=== PATIENT | female | born 1990 | race Caucasian/White ===

== ENCOUNTER 2017-02-28 22:40 | Emergency (ER) | payer OTHER ==
[~2017-02-28] VITALS: Ht 165.1 cm; Wt 70.3 kg
[~2017-02-28 22:40] MED LIST: BACTRIM DS TAB1 EACH PO; BENADRYL25 MG PO; DEPO-PROVER150 MG/ML IM
[2017-02-28] MEDS ORDERED: CEPHALEXIN500 MG PO (23:19)
[2017-02-28] MEDS ORDERED: NORCO 5-325 TA1 EACH PO (23:19)
== END 2017-02-28 23:22 | disposition home or self-care (01) ==
LOC: ED 22:40
DX: H66.92 Otitis media, unspecified, left ear (principal)
CPT/HCPCS: 99283

== ENCOUNTER 2017-09-13 05:24 | Emergency (ER) | payer OTHER ==
[~2017-09-13] VITALS: Ht 165.1 cm; Wt 68.0 kg
--- OUTSIDE RECORDS SUMMARY | ~2017-09-13 | XMS | Clinical Summary ---
Demographics + + + | Address | [address] | | | [place] [address] | + + + | Home Phone | | + + + | Preferred Language | Unknown | + + + | Marital Status | Single | + + + | Yazidism Affiliation | Unknown | + + + | Race | White | + + + | Ethnic Group | Not or | + + + Author + + + | Author | [facility] | + + + | Organization | [facility] | + + + | Address | Unknown | + + + | Phone | Unavailable | + + + Support + + + + + | Name | Relationship | Address | Phone | + + + + + | ANJELICA ROBERTSON | ECON | [place] | | + + + + + | Kelly Buck | ECON | Unknown | Unavailable | + + + + + Care Team Providers + +------+ + | Care Manager Store Name | Role | Phone | + +------+ + | Dez Amaro MD | PP | | + +------+ + Source Comments NATHANAEL is fully live on both [facility] Ambulatory and [facility] InPatient.[facility] Allergies No Known Allergies Current Medications No known medications Active Problems + + + | Problem | Noted Date | + + + | 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 | | + + + Social History + +-------+ +--------+------+ | Tobacco Use | Types | Packs/Day | Years | Date | | | | | Used | | + +-------+ +--------+------+ | Never Assessed | | | | | + +-------+ +--------+------+ + + + | Sex Assigned at | Date Recorded | | | | + + + | Not on file | | + + + Last Filed Vital Signs + + + + | Vital Sign | Reading | Time Taken | + + + + | Blood Pressure | 124/75 | 11/22/2009 10:52 AM PDT | + + + + | Pulse | 86 | 11/22/2009 10:52 AM PDT | + + + + | Temperature | - | - | + + + + | Respiratory Rate | - | - | + + + + | Oxygen Saturation | - | - | + + + + | Inhaled Oxygen | - | - | | Concentration | | | + + + + | Weight | 58.1 kg (128 lb 1.4 | 11/22/2009 10:52 AM PDT | | | oz) | | + + + + | Height | 165.5 cm (5' 5.16") | 11/22/2009 10:52 AM PDT | + + + + | Body Mass Index | 21.21 | 11/22/2009 10:52 AM PDT | + + + + Plan of Treatment + + + + + | Health Maintenance | Due Date | Last Done | Comments | + + + + + | INFLUENZA VACCINE | | | | | (FLU SHOT) | 8 | | | + + + + + Results Not on filefrom Last 3 Months
--- OUTSIDE RECORDS SUMMARY | ~2017-09-13 | XMS | Clinical Summary ---
Demographics + + + | Address | [address] | | | [place] [address] | + + + | Home Phone | | + + + | Preferred Language | Unknown | + + + | Marital Status | Single | + + + | Gnosticism Affiliation | Unknown | + + + [...] Team Providers + +------+ + | Care Maintenance Plumber Name | Role | Phone | + +------+ + | Dez Amaro MD | PP | | + +------+ + Source Comments NATHANAEL is fully live on both [facility] Ambulatory and [facility] InPatient.[facility] Allergies No Known Allergies Current Medications No [...]
[~2017-09-13 05:24] MED LIST changes: +CEPHALEXIN500 MG PO; +NORCO 5-325 TA1 EACH PO
[2017-09-13] MEDS ORDERED: ZOFRAN ODT4 MG SL (05:46)
[2017-09-18] MEDS ORDERED: NORTREL 1-35 21 EACH PO (08:54)
== END 2017-09-13 08:27 | disposition home or self-care (01) ==
LOC: ED 05:24
DX: R10.13 Epigastric pain (principal)
CPT/HCPCS: 74177; 80053; 81001; 83690; 84703; 85025; 96374; 96375; 99284; J0780; J1170; J2405; J2550; J7030; Q9967

== ENCOUNTER 2020-10-21 06:24 | Emergency (ER) | payer BC, SELFPAY ==
[~2020-10-21] VITALS: Ht 165.1 cm; Wt 73.5 kg
[~2020-10-21 06:24] MED LIST changes: +NORTREL 1-35 21 EACH PO; +ZOFRAN ODT4 MG SL
--- OUTSIDE RECORDS SUMMARY | 2020-10-21 06:26 | XMS ---
PreManage Notification: NIKHIL LEE Security Hydrotechnical Specialist Events No recent Security Events currently on file CRITERIA MET - KARLO CARE PROVIDERS CHARLENE BOONE [facility] Current PHONE: [phone] CESAR DOBSON [facility] Current PHONE: [phone] Yaneli has no Care Guidelines for this patient. Bianca VISIT COUNT (12 MO.) Brooke Cisneros TOTAL 1 NOTE: Visits indicate total known visits. ED/UCC VISIT TRACKING (12 MO.) 10/21/2020 06:24 LEXIE Odell [place] TYPE: Emergency COMPLAINT: - HEAD PAIN AND NAUSEA INPATIENT VISIT TRACKING (12 MO.) No inpatient visits to display in this time frame [email or web address]
[2020-10-21] MEDS ORDERED: OMEPRAZOLE40 MG PO (07:14)
[2020-10-21] MEDS ORDERED: ALPRAZOLAM0.5 MG PO (07:14)
== END 2020-10-21 08:53 | disposition home or self-care (01) ==
LOC: ED 06:24
DX: B34.9 Viral infection, unspecified (principal); Z20.822 Contact with and (suspected) exposure to COVID-19
CPT/HCPCS: 81001; 84703; 99283; A9270; C9803; U0003

== ENCOUNTER 2022-01-01 15:52 | Observation (INO) | payer OTHER ==
[~2022-01-01] VITALS: Ht 167.6 cm; Wt 74.8 kg
[~2022-01-01 15:52] MED LIST changes: +ALPRAZOLAM0.5 MG PO; +OMEPRAZOLE40 MG PO
--- NOTE | 2022-01-02 07:34 | PR ---
[facility] [address] [facility] [place], [place] [address] Signed AP Progress Notes Datetime Report Generated by DANNI: 01/02/2022 07:34 Chief Complaint: Nausea improved Pain improved Some sleep last night PHYSICAL EXAM: [id number] General: Normal HEENT: Not Done Neurologic: Not Done Thyroid: Not Done Cardiovascular: Normal Respiratory: Not Done Breast: Not Done Back: Not Done Abdomen: Abnormal Genitourinary Exam: Not Done Extremities: Normal Physical Exam Comments: Abdomen with mild tenderness at the epigastrium and RUQ Uterus soft, nontender WBC 7.2, H/H 10.1/30.2, plat 186k Na 140, K 3.2, Cl 106, CO2 25, glu 71 BUN/CR 6/0.6 AST 41 (prev 68) ALT 74 (prev 112) Amylase 106 (prev 385) Lipase 306 (prev 2601) Impression: 31 yo now at 30.3 wks with acute cholecystitis/pancreatitis who is much improved this am with less pain and improved labs. I suspect her diet will be able to be advanced if Dr. Salazar concurs and possibly discharged later today Hypokalemia minimally improved Plan: K+ rider Nutrition consult VITAL SIGNS: [id number] EXAM: [id number] MEMBRANES: [id number] FETUS A: [id number] FETUS B: [id number] PROGRESS NOTES: [id number] *Electronically Signed* 01/02/22 0734 ADELA THOMAS MD PATIENT NAME: NIKHIL LEE PROGRESS NOTE DATE OF : 90 PHYSICIAN: ADELA THOMAS MD RPT #: [id number] REPORT IS CONFIDENTIAL AND NOT TO BE RELEASED WITHOUT AUTHORIZATION [facility] [address] [place], [place] [address] Signed Signing Physician: Adela Thomas MD Copies: ~ *Electronically Signed* 01/02/22 0734 ADELA THOMAS MD PATIENT NAME: NIKHIL LEE PROGRESS NOTE DATE OF : 90 PHYSICIAN: ADELA THOMAS MD RPT #: [id number] REPORT IS CONFIDENTIAL AND NOT TO BE RELEASED WITHOUT AUTHORIZATION
--- NOTE | 2022-01-02 09:39 | CONS ---
[facility] [address] [place], [place] [address] Signed DATE OF CONSULTATION: 01/01/2022 TIME: 7:15 p.m. REQUESTING PHYSICIAN: Adela Thomas MD. PROBLEM: Gallstone pancreatitis. HISTORY OF PRESENT ILLNESS: This 31-year-old white woman is 30 weeks gestation with an EDC of March 10, 2022 with her first child. She is from [place], [place]. She is accompanied by her . She is a member of the [employer]. She was admitted by Dr. Thomas at approximately 5:45 p.m. with complaints of epigastric and right subcostal and right subscapular pain . The patient noted similar symptoms in her first few weeks of , evaluated in the hospital in [facility]. Her pain was attributed to "kidney stones." specifically remembers that urinalysis was normal, however. An additional episode and perhaps even more episodes were noted along the course of her . Her episode last night was severe and disabling and on that basis, she presented to Dr. Thomas who recognized her to have significant peritoneal inflammation.She was admitted directly to the hospital for further evaluation and care. During the course of her admission on this occasion, she underwent ultrasound of gallbladder, which confirms multiple gallstones. Lab studies were obtained which show hypokalemia (3.0 potassium) and liver enzymes, which showed normal bilirubin of 0.7, and AST of 68, an ALT elevated at 112, and alkaline phosphatase normal at 97. An amylase of 385 and lipase of 2601. I was called by Dr. Thomas and recommended initiation of antibiotic Ancef at this time, IV fluids and maintenance of n.p.o. status for the time being. The patient has had no associated nausea or vomiting, but does have significant pain. Most of her pregnacy has been uneventful, except for these episodes of uppper abdominal pain. She has had a lot of reflux symptoms as well, for which she has taken " antacids". PAST MEDICAL HISTORY: Notable for porphyria cutanea tarda as well as migraine history, anxiety issues and COVID disease in December. Electronically Signed By: DELVIS IRAHETA MD 01/02/22 0939 PATIENT NAME: NIKHIL LEE CONSULTATION DATE OF : 90 REPORT #: [id number] PHYSICIAN: DELVIS IRAHETA MD PCP: OTHER PCP REPORT IS CONFIDENTIAL AND NOT TO BE RELEASED WITHOUT AUTHORIZATION [facility] [address] [place], [place] [address] Signed MEDICATIONS: At admission include 81 mg aspirin, Zoloft, buspirone 7.5 mg as needed. REVIEW OF SYSTEMS: She denies any shortness of breath or chest pain. She has had no hematemesis or blood per rectum. SOCIAL HISTORY: She is . Her accompanies her. She is from [facility]. PHYSICAL EXAMINATION: GENERAL: Pleasant white woman who does not look systemically toxic at this time. Presenting vital signs show a temperature 97.2, pulse is 86, blood pressure 120/70. HEENT: Mucous membranes were rather dry. Trachea is midline. She has no hoarseness. CHEST: Shows normal respiratory excursion without tachypnea. HEART: Regular. She has very enlarged breasts. ABDOMINAL: Examination shows a fundic height somewhat below the xiphoid and well above the umbilicus consistent with 30 weeks gestation. She has significant tenderness in the epigastric and right subcostal area. She has no discernible ascites. EXTREMITIES: Show no clubbing, cyanosis, or edema. There are no petechiae. Urinalysis is reported as normal. I will review the ultrasound myself and on a different computer, but the report described multiple small gallstones and gallbladder wall edema. ASSESSMENT: Dominantly, the patient has gallstone pancreatitis. The possibility of concurent acute calculous cholecystitis is also possible. Some thickening of the gallbladder is noted. I discussed the pathophysiology of this problem with the patient and her with use of illustrations and so on. Whether or not she has associated cholecystitis is uncertain. Standard treatment for gallstone pancreatitis is a bowel rest, IV fluids, variably administration of antibiotics and allowance for resolution of clinical symptoms and signs of pancreatitis followed by cholecystectomy preferably during the same hospital stay so as to minimize chances of recurrent pancreatitis. Given her relatively advanced gestational age of 30 weeks, these issues become more problematic. Cholecystectomy--even by laparoscopic approach-- can be performed at any time during the course of if indicated. Precipitation of unintended premature labor is a hazard of operation. Untreated ongoing inflammatory processes including cholecystitis or pancreatitis can also precipitate unintended labor as well however. Electronically Signed By: DELVIS IRAHETA MD 01/02/22 0939 PATIENT NAME: NIKHIL LEE CONSULTATION DATE OF : 90 REPORT #: [id number] PHYSICIAN: DELVIS IRAHETA MD PCP: OTHER PCP REPORT IS CONFIDENTIAL AND NOT TO BE RELEASED WITHOUT AUTHORIZATION [address] [address] Signed It is reasonable to observe at this time and allow for resolution of the pancreatitis clinically and (possibly) associated cholecystitis with bowel rest, IV antibiotics, and intravenous fluids. Open cholecystectomy in this situation may be a more appropriate approach if one could not delay cholecystectomy until after delivery of the child. She would be considered at minimum to have six weeks of continued gestation before entertaining cholecystectomy and more preferably only after delivery of the child. Dr. Thomas's inclination is obviously to wait until delivery if at all possible-- as is mine. At this point, appropriate fluid resuscitation has been initiated as well as antibiotics. She does have underlyling significant gastroesophageal reflux for which a PPI or H2 yumiko medication would be appropriate. Re-evaluation of lab tests and, more importantly, clinical examination tomorrow would be planned to assess the direction in which things are going. All of this was discussed with the patient and her . They clearly understand and agree with this approach at this time. MD MANN Henry/STEPHANYL /[id number] cc: Adela Thomas MD Copies: ADELA THOMAS MD ~ Electronically Signed By: DELVIS IRAHETA MD 01/02/22 0939 PATIENT NAME: NIKHIL LEE CONSULTATION DATE OF : 90 REPORT #: [id number] PHYSICIAN: DELVIS IRAHETA MD PCP: OTHER PCP REPORT IS CONFIDENTIAL AND NOT TO BE RELEASED WITHOUT AUTHORIZATION
--- NOTE | 2022-01-02 12:39 | NUR ---
NUTRITION CONSULT RECEIVED FOR DIET EDUCATION ON A LOW-FAT DIET. PROVIDED PATIENT A HANDOUT ON A FAT-RESTRICTED DIET FROM THE NCM BUT I SUGGESTED SHE AIM FOR 15 TO 20% OF HER CALORIES TO COME FROM FAT INSTEAD OF 25 TO 35% OF CALORIES. I WALKED HER THROUGH THE FOODS RECOMMENDED LIST. I SUGGESTED SHE SWITCH FROM 2% TO FAT FREE OR 1% MILK AND THAT SHE EAT THE LIGHT STRING CHEESE AND FAT FREE OR LOW-FAT CHEESE. SHE AND HER DO EAT MEAT SO I REMINDED HER TO GRILL, BAKE, BROIL, OR ROAST THE MEAT AND TO AVOID FRIED FOODS OF ANY KIND. LOW-FAT OR FAT-FREE SNACK IDEAS PROVIDED. HER QUESTIONS WERE ANSWERED. MY NAME AND OFFICE # PROVIDED IN CASE FURTHER QUESTIONS ARISE.
--- NOTE | 2022-01-02 12:53 | PR ---
[facility] [address] [facility] [place] [address] Signed AP Progress Notes Datetime Report Generated by CPN: 01/02/2022 12:53 Chief Complaint: Feeling better Very hungry PHYSICAL EXAM: [id number] General: Normal HEENT: Not Done Neurologic: Not Done Thyroid: Not Done Cardiovascular: Not Done Respiratory: Not Done Breast: Not Done Back: Not Done Abdomen: Abnormal Genitourinary Exam: Not Done Extremities: Normal Physical Exam Comments: Abdomen is soft, gravid sl tender in epigastrium and RUQ Impression: Feeling better Hypokalemia Plan: Will try low fat lunch Check K+ level VITAL SIGNS: [id number] EXAM: [id number] MEMBRANES: [id number] FETUS A: [id number] FETUS B: [id number] PROGRESS NOTES: [id number] Signing Physician: Adela Thomas MD Copies: ~ *Electronically Signed* 01/02/22 1253 ADELA THOMAS MD PATIENT NAME: NIKHIL LEE PROGRESS NOTE DATE OF : 90 PHYSICIAN: ADELA THOMAS MD RPT #: [id number] REPORT IS CONFIDENTIAL AND NOT TO BE RELEASED WITHOUT AUTHORIZATION
--- NOTE | 2022-01-03 08:38 | PR ---
[facility] [address] [facility] [place], [place] [address] Signed AP Progress Notes Datetime Report Generated by DANNI: 01/03/2022 08:38 Chief Complaint: Had some nausea this am but relates it to her migraine. Abdominal pain has resolved. PHYSICAL EXAM: [id number] General: Normal HEENT: Not Done Neurologic: Not Done Thyroid: Not Done Cardiovascular: Not Done Respiratory: Not Done Breast: Not Done Back: Not Done Abdomen: Abnormal Genitourinary Exam: Not Done Extremities: Normal DTRs: Not Done Physical Exam Comments: Abdomen is gravid, soft, minimal tenderness in epigastrium and RUQ Na 141, K 3.3, Cl 107, CO2 24, BUN/Cr 4/0.61, Glu 78 ALT 47 AST 23 Amylase 60 Lipase 154 Impression: IUP at 30.4 wks Cholecystitis/pancreatitis resolved at this time Hypokalemia Plan: Low fat diet this am K+ supplementation Probable D/C if tolerates her breakfast and K rider complete VITAL SIGNS: [id number] EXAM: [id number] MEMBRANES: [id number] FETUS A: [id number] FETUS B: [id number] PROGRESS NOTES: [id number] Signing Physician: Adela Thomas MD *Electronically Signed* 01/03/22837 ADELA THOMAS MD PATIENT NAME: NIKHIL LEE PROGRESS NOTE DATE OF : 90 PHYSICIAN: ADELA THOMAS MD RPT #: [id number] REPORT IS CONFIDENTIAL AND NOT TO BE RELEASED WITHOUT AUTHORIZATION [facility] [address] [place], [place] [address] Signed Copies: ~ *Electronically Signed* 01/03/22 0838 ADELA THOMAS MD PATIENT NAME: NIKHIL LEE PROGRESS NOTE DATE OF : 90 PHYSICIAN: ADELA THOMAS MD RPT #: [id number] REPORT IS CONFIDENTIAL AND NOT TO BE RELEASED WITHOUT AUTHORIZATION
== END 2022-01-03 11:32 | disposition home or self-care (01) ==
LOC: FBCO → FBC 15:52 → FBCO 15:52 → FBC 16:20 → FBCO 17:25 → FBC 17:25 → FBCO 03-10 08:33
PROVIDERS: ADMIT Obstetrics & Gynecology; ATTEND Obstetrics & Gynecology
DX: O99.613 Diseases of the digestive system complicating pregnancy, third trimester (principal); K92.89 Other specified diseases of the digestive system; K85.10 Biliary acute pancreatitis without necrosis or infection; K21.9 Gastro-esophageal reflux disease without esophagitis; Z3A.30 30 weeks gestation of pregnancy
CPT/HCPCS: 36415; 76705; 80048; 80053; 81001; 82150; 83690; 84132; 84478; 85025; A9270; J0690; J1170; J2405; J2550; J3480; J7040; J7060; J7121

== ENCOUNTER 2022-01-17 16:13 | Observation (INO) | payer OTHER ==
[~2022-01-17] VITALS: Ht 167.6 cm; Wt 71.7 kg
--- NOTE | 2022-01-18 09:05 | PR ---
[facility] [address] [facility] [place], [place] [address] Signed AP Progress Notes Datetime Report Generated by DANNI: 01/18/2022 09:05 Chief Complaint: Nausea, right flank/abdominal pain, low back pain which are all improved this am. PHYSICAL EXAM: [id number] General: Normal HEENT: Not Done Neurologic: Not Done Thyroid: Not Done Cardiovascular: Normal Respiratory: Not Done Breast: Not Done Back: Not Done Abdomen: Abnormal Genitourinary Exam: Not Done Extremities: Normal DTRs: Not Done Physical Exam Comments: Abdomen is gravid. Tender in the RUQ. K+= 3.2 Impression: 31 yo female who may have had a GI bug with her vomiting and diarrhea yesterday but also has a hx of gallstone pancreatitis requiring admission 2 wks ago. There is no evidence of pancreatitis at this time but her symptoms may be related to her gallbladder also. Dehydration is improving Hypokalemia improving but still too low Plan: Continue hydration Repeat K rider VITAL SIGNS: [id number] EXAM: [id number] MEMBRANES: [id number] Membranes: Intact FETUS A: [id number] FETUS B: [id number] PROGRESS NOTES: [id number] Signing Physician: Adela Thomas MD *Electronically Signed* 01/18/22904 ADELA THOMAS MD PATIENT NAME: NIKHIL LEE PROGRESS NOTE DATE OF : 90 PHYSICIAN: ADELA THOMAS MD RPT #: [id number] REPORT IS CONFIDENTIAL AND NOT TO BE RELEASED WITHOUT AUTHORIZATION
--- NOTE | 2022-01-18 12:56 | PR ---
[facility] [address] [place], [place] [address] Signed AP Progress Notes Datetime Report Generated by CPN: 01/18/2022 12:56 Chief Complaint: Nausea resolved. Some discomfort over back--lower and upper and some sciatica. She has not been drinking her clear liquids and has no explanation for not drinking. PHYSICAL EXAM: [id number] General: Normal HEENT: Not Done Neurologic: Not Done Thyroid: Not Done Cardiovascular: Normal Respiratory: Not Done Breast: Not Done Back: Not Done Abdomen: Abnormal Genitourinary Exam: Not Done Extremities: Normal DTRs: Not Done Physical Exam Comments: K+= 3.5 Impression: Overall improved with resolution of nausea and pain better. She is not drinking, however, and this is problematic. Plan: Start low fat diet Push po fluids Possible D/C later today VITAL SIGNS: [id number] EXAM: [id number] MEMBRANES: [id number] Membranes: Intact FETUS A: [id number] FETUS B: G8662546 PROGRESS NOTES: [id number] Signing Physician: Adela Thomas MD Copies: ~ *Electronically Signed* 01/18/22 7766 ADELA THOMAS MD PATIENT NAME: NIKHIL LEE PROGRESS NOTE DATE OF : 90 PHYSICIAN: ADELA THOMAS MD RPT #: [id number] REPORT IS CONFIDENTIAL AND NOT TO BE RELEASED WITHOUT AUTHORIZATION
--- NOTE | 2022-01-18 17:05 | PR ---
[facility] [address] [place] [place], [place] [address] Signed AP Progress Notes Datetime Report Generated by CPN: 01/18/2022 17:05 Chief Complaint: Tolerated a low fat lunch w/o nausea. Not great with fluid intake, however. PHYSICAL EXAM: [id number] General: Normal HEENT: Not Done Neurologic: Not Done Thyroid: Not Done Cardiovascular: Normal Respiratory: Not Done Breast: Not Done Back: Not Done Abdomen: Abnormal Genitourinary Exam: Not Done Extremities: Normal DTRs: Not Done Physical Exam Comments: Abdomen is gravid. Tender in RUQ. Impression: N/V resolved Hypokalemia resolved Hx gallstone pancreatitis and suspect gallbladder disease contributed to her pain and her nausea Plan: D/C home Push fluids Continue low fat diet F/U next wk as scheduled VITAL SIGNS: [id number] EXAM: [id number] MEMBRANES: [id number] Membranes: Intact FETUS A: [id number] FETUS B: H8709508 PROGRESS NOTES: [id number] Signing Physician: Adela Thomas MD *Electronically Signed* 01/18/22 1705 ADELA THOMAS MD PATIENT NAME: NIKHIL LEE PROGRESS NOTE DATE OF : 90 PHYSICIAN: ADELA THOMAS MD RPT #: [id number] REPORT IS CONFIDENTIAL AND NOT TO BE RELEASED WITHOUT AUTHORIZATION
== END 2022-01-18 17:00 | disposition home or self-care (01) ==
LOC: FBCO 16:13 → FBC 16:14
PROVIDERS: ADMIT General Practice; ATTEND General Practice
DX: O99.891 Other specified diseases and conditions complicating pregnancy (principal); R11.2 Nausea with vomiting, unspecified; M54.50 Low back pain, unspecified; O99.283 Endocrine, nutritional and metabolic diseases complicating pregnancy, third trimester; E87.6 Hypokalemia; E86.0 Dehydration; Z3A.32 32 weeks gestation of pregnancy
CPT/HCPCS: 36415; 59025; 80053; 81001; 82150; 83690; 84132; 96365; 96366; 96375; 96376; A9270; G0378; J2405; J2550; J3480; J7060; J7121

== ENCOUNTER 2022-02-13 13:34 | Inpatient (IN) | payer OTHER ==
[~2022-02-13] VITALS: Ht 167.6 cm; Wt 71.2 kg
--- NOTE | 2022-02-20 08:27 | PR ---
[facility] [address] [facility] [place] [address] Signed Progress Notes IP Datetime Report Generated by DANNI: 02/20/2022 08:26 PROGRESS NOTES: [id number] Impression: Reassuring Heart Rate Procedures: Sterile Vag Exam Plan: Continue Present Management VITAL SIGNS: [id number] Vital Signs: Reviewed; Within Normal Limits EXAM: [id number] Dilatation: 1.0 Effacement: 0 Station: -2 Contractions: q 1 to 2 min MEMBRANES: [id number] Membranes Status: Intact Comments: status much improved but another variable after up to the bathroom. I would like continuous monitoring given her intermittent variables. Will recheck in approx 2 hrs and attempt AROM at that time. FETUS A: [id number] FHR Baseline: 140 Variability: Moderate 6-25bpm Accelerations: None Decelerations: Late; Variable FHR Category: Category II Presentation: Vertex FETUS B: [id number] Signing Physician: Adela Thomas MD Copies: ~ *Electronically Signed* 02/20/22825 ADELA THOMAS MD PATIENT NAME: NIKHIL LEE PROGRESS NOTE DATE OF : 90 PHYSICIAN: ADELA THOMAS MD RPT #: [id number] REPORT IS CONFIDENTIAL AND NOT TO BE RELEASED WITHOUT AUTHORIZATION
--- NOTE | 2022-02-20 11:52 | PR ---
[facility] [address] [facility] [place], [place] [address] Signed Progress Notes IP Datetime Report Generated by DANNI: 02/20/2022 11:52 PROGRESS NOTES: [id number] Impression: Reassuring Heart Rate Procedures: Artificial ROM; Sterile Vag Exam Plan: Continue Present Management VITAL SIGNS: [id number] Vital Signs: Reviewed; Within Normal Limits EXAM: [id number] Dilatation: 1.0 Effacement: 25 Station: -3 Contractions: q 1 to 2 min MEMBRANES: [id number] Membranes Status: Intact Comments: Overall reassuring strip with variability and accels. Will continue close observation. Hopefully, AROM will allow progress in her labor. FETUS A: [id number] FHR Baseline: 140 Variability: Moderate 6-25bpm Accelerations: None Decelerations: Late; Variable FHR Category: Category II Presentation: Vertex FETUS B: [id number] Signing Physician: Adela Thomas MD Copies: ~ *Electronically Signed* 02/20/22 1152 ADELA THOMAS MD PATIENT NAME: NIKHIL LEE PROGRESS NOTE DATE OF : 90 PHYSICIAN: ADELA THOMAS MD RPT #: [id number] REPORT IS CONFIDENTIAL AND NOT TO BE RELEASED WITHOUT AUTHORIZATION
--- NOTE | 2022-02-20 13:23 | PR ---
[facility] [address] [facility] [place], [place] [address] Signed Progress Notes IP Datetime Report Generated by CPN: 02/20/2022 13:23 PROGRESS NOTES: [id number] Impression: Reassuring Heart Rate Procedures: Sterile Vag Exam Plan: Continue Present Management VITAL SIGNS: [id number] Vital Signs: Reviewed; Within Normal Limits EXAM: [id number] Dilatation: 1.0 Effacement: 50 Station: -3 Contractions: q 1 to 2 min MEMBRANES: [id number] Membranes Status: Intact Comments: Improvement in FHTs with changes in position but will continue to require very close observation as baby has decels with ambulation/sitting on the birthing ball. It is not clear if she will be successful with vaginal delivery at this time. Will continue close observation with position changes as needed. FETUS A: [id number] FHR Baseline: 140 Variability: Moderate 6-25bpm Accelerations: None Decelerations: Late; Variable FHR Category: Category II Presentation: Vertex FETUS B: [id number] Signing Physician: Adela Thomas MD Copies: ~ *Electronically Signed* 02/20/22 1323 ADELA THOMAS MD PATIENT NAME: NIKHIL LEE PROGRESS NOTE DATE OF : 90 PHYSICIAN: ADELA THOMAS MD RPT #: [id number] REPORT IS CONFIDENTIAL AND NOT TO BE RELEASED WITHOUT AUTHORIZATION
--- NOTE | 2022-02-20 16:54 | PR ---
[facility] [address] [place], [place] [address] Signed Progress Notes IP Datetime Report Generated by DANNI: 02/20/2022 16:54 PROGRESS NOTES: [id number] Impression: Non-reassuring Heart Rate Procedures: Intrauterine Pressure Catheter; Scalp Electrode; Sterile Vag Exam Other Procedures: subq terb Plan: Continue Present Management Informed Consent Obtain: Section Delivery; Risks, Benefits and Alternatives Discussed VITAL SIGNS: [id number] Vital Signs: Reviewed; Within Normal Limits EXAM: [id number] Dilatation: 3.0 Effacement: 85 Station: -2 Contractions: q 1 to 2 min MEMBRANES: [id number] Membranes Status: Intact Comments: Some progress but still very early in her labor but status worrisome with recurring decels as well as prolonged decels earlier. Will try subQ terb now to see if this will help with the decels as position changes not helpful. If there is no improvement, C/S will be necessary to avoid compromise. FETUS A: [id number] FHR Baseline: 140 Variability: Moderate 6-25bpm Accelerations: None Decelerations: Late; Variable FHR Category: Category II Presentation: Vertex FETUS B: [id number] Signing Physician: Adela Thomas MD Copies: ~ *Electronically Signed* 02/20/22 7772 ADELA THOMAS MD PATIENT NAME: NIKHIL LEE PROGRESS NOTE DATE OF : 90 PHYSICIAN: ADELA THOMAS MD RPT #: [id number] REPORT IS CONFIDENTIAL AND NOT TO BE RELEASED WITHOUT AUTHORIZATION
--- NOTE | 2022-02-20 17:13 | PR ---
[facility] [address] [place], [place] [address] Signed Progress Notes IP Datetime Report Generated by DANNI: 02/20/2022 17:12 PROGRESS NOTES: [id number] Impression: Reassuring Heart Rate Procedures: Intrauterine Pressure Catheter; Scalp Electrode; Sterile Vag Exam Other Procedures: subq terb Plan: Continue Present Management Informed Consent Obtain: Section Delivery; Risks, Benefits and Alternatives Discussed VITAL SIGNS: [id number] Vital Signs: Reviewed; Within Normal Limits EXAM: [id number] Dilatation: 3.0 Effacement: 85 Station: -2 Contractions: q 1 to 2 min MEMBRANES: [id number] Membranes Status: Intact Comments: status much improved after subQ terb and eliminating most of the contractions. Will allow terb to wear off and see how fetus tolerates the labor. If recurrent decels, suspect we will need to proceed with section. Discussed with patient. FETUS A: [id number] FHR Baseline: 140 Variability: Moderate 6-25bpm Accelerations: None Decelerations: Late; Variable FHR Category: Category II Presentation: Vertex FETUS B: [id number] Signing Physician: Adela Thomas MD Copies: ~ *Electronically Signed* 02/20/22 1712 ADELA THOMAS MD PATIENT NAME: NIKHIL LEE PROGRESS NOTE DATE OF : 90 PHYSICIAN: ADELA THOMAS MD RPT #: [id number] REPORT IS CONFIDENTIAL AND NOT TO BE RELEASED WITHOUT AUTHORIZATION
--- NOTE | 2022-02-20 21:15 | PR ---
[facility] [address] [place], [place] [address] Signed Progress Notes IP Datetime Report Generated by DANNI: 02/20/2022 21:15 PROGRESS NOTES: [id number] Impression: Arrest of Dilatation/Descent; Reassuring Heart Rate Procedures: Intrauterine Pressure Catheter; Scalp Electrode; Sterile Vag Exam Other Procedures: subq terb Plan: Augmentation Informed Consent Obtain: Section Delivery; Risks, Benefits and Alternatives Discussed VITAL SIGNS: [id number] Vital Signs: Reviewed; Within Normal Limits EXAM: [id number] Dilatation: 3.0 Effacement: 85 Station: -2 Contractions: q 1 to 2 min MEMBRANES: [id number] Membranes Status: Intact Comments: No progress for over 4 hrs though not ideal labor pattern. FHTs overall reassuring but still with frequent variables/lates. Feel augmentation is needed to determine if progress can be made with adequate contractions. It is unclear whether or not baby will tolerate an adequate labor pattern, however. Discussed with patient and will proceed with low dose pitocin augmentation. FETUS A: [id number] FHR Baseline: 140 Variability: Moderate 6-25bpm Accelerations: None Decelerations: Late; Variable FHR Category: Category II Presentation: Vertex FETUS B: [id number] Signing Physician: Adela Thomas MD Copies: ~ *Electronically Signed* 02/20/22 1245 ADELA THOMAS MD PATIENT NAME: NIKHIL LEE PROGRESS NOTE DATE OF : 90 PHYSICIAN: ADELA THOMAS MD RPT #: [id number] REPORT IS CONFIDENTIAL AND NOT TO BE RELEASED WITHOUT AUTHORIZATION
--- NOTE | 2022-02-20 22:18 | PR ---
[facility] [address] [place], [place] [address] Signed Progress Notes IP Datetime Report Generated by DANNI: 02/20/2022 22:18 PROGRESS NOTES: [id number] Impression: Arrest of Dilatation/Descent; Non-reassuring Heart Rate Procedures: Intrauterine Pressure Catheter; Scalp Electrode; Sterile Vag Exam Other Procedures: subq terb Plan: Deliver- Section Informed Consent Obtain: Section Delivery; Risks, Benefits and Alternatives Discussed VITAL SIGNS: [id number] Vital Signs: Reviewed; Within Normal Limits EXAM: [id number] Dilatation: 3.0 Effacement: 85 Station: -2 Contractions: q 1 to 2 min MEMBRANES: [id number] Membranes Status: Intact Comments: status no longer reassuring and as no progress feel section is needed. Pitocin is off and she is now getting dose #3 of subq terb to help with intrauterine resuscitation. PARQ done for C/S. FETUS A: [id number] FHR Baseline: 140 Variability: Moderate 6-25bpm Accelerations: None Decelerations: Late; Variable FHR Category: Category II Presentation: Vertex FETUS B: [id number] Signing Physician: Adela Thomas MD Copies: ~ *Electronically Signed* 02/20/22 2740 ADELA THOMAS MD PATIENT NAME: NIKHIL LEE PROGRESS NOTE DATE OF : 90 PHYSICIAN: ADELA THOMAS MD RPT #: [id number] REPORT IS CONFIDENTIAL AND NOT TO BE RELEASED WITHOUT AUTHORIZATION
--- NOTE | 2022-02-21 11:27 | PR ---
[facility] [address] [facility] [place], [place] [address] Signed PP Progress Notes Datetime Report Generated by CPN: 02/21/2022 11:26 SUBJECTIVE: [id number] Pain: Within Normal Limits Nausea/Vomiting: Denies Vital Signs: [id number] Vital Signs: Reviewed; Within Normal Limits Cardiovascular: Normal Respiratory: Normal Abdomen/Uterus: Abnormal Lochia: Normal Vulva/Perineum: Not Done Breasts: Not Done CVA Tenderness: Not Done Extremities: Normal Incision: Normal Progress: Normal Exam Comments: Abdomen with active BS. Fundus firm, sl tender @ U-2. H/H 9.5/29.2, WBC 13.1, plat 148k IMPRESSION/PLAN/PROCEDURES: [id number] Impression: Normal Progression Other Plans: ambulate Procedures: Rhogam Progress Notes: Doing well. Will begin ambulating and D/C arora this pm. Signing Physician: Adela Thomas MD Copies: ~ *Electronically Signed* 02/21/22 1126 ADELA THOMAS MD PATIENT NAME: NIKHIL LEE PROGRESS NOTE DATE OF : 90 PHYSICIAN: ADELA THOMAS MD RPT #: [id number] REPORT IS CONFIDENTIAL AND NOT TO BE RELEASED WITHOUT AUTHORIZATION
--- NOTE | 2022-02-22 08:21 | PR ---
[facility] [address] [facility] [place], [place] [address] Signed PP Progress Notes Datetime Report Generated by CPJovani: 02/22/2022 08:21 SUBJECTIVE: [id number] Pain: Within Normal Limits Nausea/Vomiting: Denies Flatus: Yes Vital Signs: [id number] Vital Signs: Reviewed; Within Normal Limits Cardiovascular: Normal Respiratory: Abnormal Abdomen/Uterus: Abnormal Lochia: Normal Vulva/Perineum: Not Done Breasts: Not Done CVA Tenderness: Not Done Extremities: Normal Incision: Normal Progress: Abnormal Exam Comments: Abdomen with active BS. Fundus firm, NT @ U-2. IMPRESSION/PLAN/PROCEDURES: [id number] Impression: Normal Progression; Difficulties Plan: Consult Other Plans: ambulate Procedures: Rhogam Progress Notes: Doing well overall but is having issues with breast feeding. Will try to arrange for breast feeding consult. Signing Physician: Adela Thomas MD Copies: ~ *Electronically Signed* 02/22/22820 ADELA THOMAS MD PATIENT NAME: NIKHIL LEE PROGRESS NOTE DATE OF : 90 PHYSICIAN: ADELA THOMAS MD RPT #: [id number] REPORT IS CONFIDENTIAL AND NOT TO BE RELEASED WITHOUT AUTHORIZATION
--- NOTE | 2022-02-22 11:25 | NUR ---
YESTERDAY PATIENT'S DIET ORDER WAS ADVANCED TO A LOW FAT DIET. PATIENT STATES SHE IS TO HAVE NO MORE THAN 33 GRAMS OF FAT PER DAY. I RECOMMENDED THAT SHE DOES NOT NEED TO BE SO STRICT NOW THAT THE BABY HAS BEEN DELIVERED AND SHE IS . SHE MISSES EATING ELK MEAT AND OTHER MEATS. I TOLD HER SHE CAN HAVE THOSE ITEMS BUT ITS BEST TO KEEP THEM LEAN AND DON'T FREDERICK THEM. SHE SHOULD BE FINE WITH 2-3 OZ. OF ELK BURGER OR LEAN BEEF FOR A MEAL. 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 I WILL CONTINUE TO PROVIDE EDUCATION ON HER NUTRITION NEEDS. SINCE SHE IS SHE WILL NEED ~2300 CALORIES PER DAY. A LOW-FAT DIET WOULD ALLOW HER TO HAVE UP TO 64 GRAMS OF FAT PER DAY.
--- NOTE | 2022-02-22 19:23 | EKG ---
[facility] [address] [facility] [place] [address] Signed Sinus bradycardia with marked sinus arrhythmia Low voltage QRS Nonspecific T wave abnormality Abnormal ECG No previous ECGs available Confirmed by Farrukh Smalls MD () on 02/22/2022 7:23:45 PM Electronically Signed By: FARRUKH SMALLS MD 02/22/221922 PATIENT NAME: NIKHIL LEE Electrocardiogram DATE OF : 90 PHYSICIAN: FARRUKH SMALLS MD REPORT #: [id number] REPORT IS CONFIDENTIAL AND NOT TO BE RELEASED WITHOUT AUTHORIZATION
--- NOTE | 2022-02-23 08:28 | PR ---
[facility] [address] [facility] [place], [place] [address] Signed PP Progress Notes Datetime Report Generated by CPJovani: 02/23/2022 08:28 SUBJECTIVE: [id number] Pain: Within Normal Limits Nausea/Vomiting: Denies Flatus: Yes Bowel Movement: No Vital Signs: [id number] Vital Signs: Reviewed; Within Normal Limits Cardiovascular: Normal Respiratory: Normal Abdomen/Uterus: Abnormal Lochia: Normal Vulva/Perineum: Not Done Breasts: Not Done CVA Tenderness: Not Done Extremities: Normal Incision: Normal Progress: Abnormal Exam Comments: Fundus firm, NT @ U-2. IMPRESSION/PLAN/PROCEDURES: [id number] Impression: Normal Progression Plan: Remove Fan; Discharge Other Plans: ambulate Procedures: Rhogam Progress Notes: Doing well overall but still having issues with breast feeding. Will work on this again today and arrange for consult next wk. Signing Physician: Adela Thomas MD Copies: ~ *Electronically Signed* 02/23/22827 ADELA THOMAS MD PATIENT NAME: NIKHIL ELE PROGRESS NOTE DATE OF : 90 PHYSICIAN: ADELA THOMAS MD RPT #: [id number] REPORT IS CONFIDENTIAL AND NOT TO BE RELEASED WITHOUT AUTHORIZATION
--- NOTE | 2022-02-24 17:53 | OR ---
[facility] [address] [place], [place] [address] Signed DATE OF OPERATION: 02/20/2022 SURGEON: Adela Thomas MD SHIP PROPELLER FINISHER: Miriam Acevedo DO PREOPERATIVE DIAGNOSES: 1. intolerance to labor. 2. Persistent occiput posterior position. 3. History of gallstone pancreatitis during this . POSTOPERATIVE DIAGNOSES: 1. intolerance to labor. 2. Persistent occiput posterior position. 3. History of gallstone pancreatitis during this . 4. Delivered. PROCEDURE: Primary section with low segment transverse uterine incision. ANESTHESIA: Epidural. ESTIMATED BLOOD LOSS: 700 mL. DRAINS: Cruz catheter. INDICATIONS AND FINDINGS: The patient is a 31-year-old female 1, para 0, admitted at 37.3 weeks for induction secondary to her history of gallstone pancreatitis. She has had several episodes of abdominal pain and her diet has been severely limited because of her history. She has actually lost weight since her diagnosis. She has had recurring episodes of pain requiring hospital evaluation. Because of this, the decision was made to deliver her a little earlier so she could undergo earlier treatment of her gallbladder disease. The patient received Cytotec and received two doses and at that point was having fairly frequent contractions. She began having some decelerations and because of that terbutaline was given. She also had IV boluses as well as multiple Electronically Signed By: ADELA THOMAS MD 02/24/22 1753 PATIENT NAME: NIKHIL LEE OPERATIVE REPORT DATE OF : 90 REPORT #: [id number] PHYSICIAN: ADELA THOMAS MD PCP: OTHER PCP REPORT IS CONFIDENTIAL AND NOT TO BE RELEASED WITHOUT AUTHORIZATION [facility] [address] [place], [place] [address] Signed position changes. Intermittently, the baby would look very good with good variability with accels and no decels, but this would always being followed by recurrent decels including deep variables, prolonged decels and lates. During the course of her labor trial, she progressed to 3 cm but she had also received a total of three doses of subcu terbutaline for intrauterine resuscitation because of her decels. Because of this, it was felt that the baby would not tolerate the contractions and as such would not be able to become completely dilated because of this and the decision was made to proceed with primary section. She was taken to the operating room where she was delivered of a little boy via lower segment transverse uterine incision from the LOP position with nuchal cord x1 which was tight and Apgars of 8 and 9 and weight of 5 pounds 6 ounces. The uterus, tubes, ovaries, and placenta otherwise appeared normal. PROCEDURE IN DETAIL: The patient was prepped and draped in the supine position. A Pfannenstiel skin incision was made and carried down through the fascia. The fascial incision was extended laterally. The inferior and superior fascial flaps were then created. The muscles were bluntly divided and the peritoneum opened sharply and the incision extended bluntly. The Rubin retractor was placed. The uterine incision was made at the upper aspect of the peritoneal reflection. The uterine excision extended digitally and the baby delivered with the above findings and handed off to the pediatric staff in attendance. The placenta was removed manually. The uterus was explored with a lap tape assuring no remaining fragments. The edges of the incision were identified and the uterus was closed in 2 layers using 0 Monocryl. The first layer was a running locking stitch and the second was a vertical imbricating stitch. An additional suture was required near the patient's left angle for control of bleeding. Following this, the abdomen was irrigated and the uterine incision was hemostatic. The retractor was removed and the peritoneum identified. The peritoneum was closed with running suture of 3-0 Vicryl. The muscles were brought together with interrupted sutures of 0 Vicryl. There was bleeding over the pyramidalis at the inferior fascial flap and this was controlled with cautery. Because of the raw area, Lilly was also sprinkled in this area to aid in hemostasis. Following this, the fascia was closed from each angle to the midline with a running suture of 0 Vicryl. The subcu was reapproximated with interrupted sutures of 3-0 Vicryl and the skin was closed with fannie. All sponge and needle counts were correct. She tolerated the procedure well and was taken to the recovery room in good condition. Adela Thomas MD Electronically Signed By: ADELA THOMAS MD 02/24/22 1753 PATIENT NAME: NIKHIL LEE OPERATIVE REPORT DATE OF : 90 REPORT #: [id number] PHYSICIAN: ADELA THOMAS MD PCP: OTHER PCP REPORT IS CONFIDENTIAL AND NOT TO BE RELEASED WITHOUT AUTHORIZATION [address] [address] Signed PJW/MODL /[id number] cc: Sylvia Acevedo DO Copies: SYLVIA ACEVEDO DO ~ Electronically Signed By: ADELA THOMAS MD 02/24/22 1753 PATIENT NAME: NIKHIL LEE OPERATIVE REPORT DATE OF : 90 REPORT #: [id number] PHYSICIAN: ADELA THOMAS MD PCP: OTHER PCP REPORT IS CONFIDENTIAL AND NOT TO BE RELEASED WITHOUT AUTHORIZATION
== END 2022-02-23 13:25 | disposition home or self-care (01) | DRG 788 ==
LOC: FBC 02-20
PROVIDERS: ADMIT Obstetrics & Gynecology; ATTEND Obstetrics & Gynecology
PROC: 10H07YZ Insertion of Other Device into Products of Conception, Via Natural or Artificial Opening (ICD-10-PCS; 2022-02-20)
PROC: 10D00Z1 Extraction of Products of Conception, Low, Open Approach (ICD-10-PCS; principal; 2022-02-20 22:54)
DX: O64.0XX0 Obstructed labor due to incomplete rotation of fetal head, not applicable or unspecified (principal); Z37.0 Single live birth; Z20.822 Contact with and (suspected) exposure to COVID-19; O76 Abnormality in fetal heart rate and rhythm complicating labor and delivery; Z87.19 Personal history of other diseases of the digestive system; Z3A.37 37 weeks gestation of pregnancy
CPT/HCPCS: 01961; 36415; 80053; 82150; 82803; 83030; 83690; 85027; 86850; 86870; 86900; 86901; 87502; 93005; 93010; A9270; J0456; J0690; J1100; J1644; J1885; J2175; J2274; J2300; J2370; J2405; J2550; J2590; J2790; J2795; J3010; J3105; J7121; U0003

== ENCOUNTER 2022-03-08 07:20 | Day surgery (SDC) | payer OTHER ==
--- NOTE | 2022-03-05 14:57 | NUR ---
PHONE CALL TO PT, NO ANSWER LEFT MESSAGE, ALSO REMINDED HER OF HER COVID TEST FOR 03-06-22.
[~2022-03-08] VITALS: Ht 165.1 cm; Wt 65.5 kg
[~2022-03-08 07:20] MED LIST changes: +BUSPIRONE HCL5 MG PO; +IBU400 MG PO; +VAZALORE81 MG PO; +ZOLOFT25 MG PO
[2022-03-08] MEDS ORDERED: PRENA1 TRUE CO1 EACH PO (07:48)
--- NOTE | 2022-03-08 10:45 | NUR ---
INFUSION COMPLETE. RIGHT PICC DRESSING CHANGED TODAY. PATIENT REPORTS HIS WOUND IS HEALING AND HE WILL HOPEFULLY BE DONE WITH ANTIBIOTICS WITHIN THE MONTH
--- NOTE | 2022-03-08 10:46 | NUR ---
AFTER DRESSING AND INFUSION, PATIENT AMBULATED OUT OF DEPARTMENT UNDER OWN POWER.
--- NOTE | 2022-03-08 11:28 | NUR ---
03/08/22 1128 Roxanne Wright 1122-PATIENT ARRIVED TO PACU ON 6L MASK NOANROUSABLE ORAL AIRWAY IN PLACE RR EVEN. SR. IVF INFUSING. 4 LAP SITES TO ABDOMEN CDI STERI STRIPS IN PLACE. NEW ORDER RECEIVED FOR IV TYLENOL 1 GRAM 1125-PATIENT AROUSING GAGGING. ORAL AIRWAY REMOVED. 6L MASK RR EVEN 100% ORIENTED TO PACU PATIENT CLOSES EYES.
[2022-03-08] MEDS ORDERED: PERCOCET 7.5-31 EACH PO (11:38)
--- NOTE | 2022-03-08 12:46 | NUR ---
1230: PATIENT BACK IN DAY SURGERY ROOM FROM PACU. TEARFUL. RATES PAIN 11/10. VS CHECKED. IV SITE WNL. ABDOMEN WITH 4 SURGICAL SITES. ALL WITH STERI STRIPS AND SCANT AMOUNT OF RED DRAINAGE. SCDs ON. PATIENT GIVEN PUDDING TO EAT. AT BEDSIDE. 1240: PATIENT TOLERATED A FEW BITES OF PUDDING. MEDICATED FOR PAIN WITH 1 TAB OF PERCOCET. GIVEN ICE WATER. AT BEDSIDE. CALL LIGHT WITHIN REACH.
--- NOTE | 2022-03-08 13:08 | NUR ---
1250: PATIENT USED CALL LIGHT. STATES PAIN STILL SHARP ESPECIALLY IN RUQ ABDOMEN UNDERNEATH RIBS. CRYING. PATIENT NOT WANTING TO TAKE DEEP BREATHS DUE TO PAIN. TALKED WITH DR. IRAHETA. ORDER RECEIVED FOR ATIVAN. AWAITING MED VERIFICATION FROM PHARMACY.
--- NOTE | 2022-03-08 13:17 | NUR ---
1309 PATIENT GIVEN 1 MG/ML OF IV LORAZEPAM. PATIENT APPEARS TO BE ANIXOUS. PATIENT CRYING. PATIENT RR 18-22. OXYGEN SATURATIONS ABOVE 95% ON ROOM AIR. BREATHING LABORED. THIS RN AT BEDSIDE. SPOUSE AT BEDSIDE
--- NOTE | 2022-03-08 14:54 | NUR ---
1320 PATIENT BREATHING EQUAL AND UNLABORED. PATIENT IS ALERT AND ORIENTED. PATIENT SITTING AT EDGE OF BED. PATIENT STATES HER ANXIETY HAS IMPROVED AND HER BREATHING FEELS BETTER SITTING UP. PATIENT STILL COMPLAINS OF PAIN. 6/10. 1330 PATIENT ABLE TO STAND AT EDGE OF BED. PATIENT ABLE TO AMBULATE TO RESTROOM. PATIENT TOLERATED IT WELL. PATIENT VOIDED 900 MLS OF CLEAR AND YELLOW URINE. 1353 PATIENT GIVEN PRN PERCOCET. PATIENT RESTING IN BED. PATIENT PAIN 8/10 AT SURGICAL SITE. PATIENT ALERT AND ORIENTED. BREATHING EQUAL AND UNLABORED. OXYGEN SATURATIONS ABOVE 95% ON ROOM AIR. PATIENT SURGICAL SITE HAS SMALL AMOUNT OF RED DRAINAGE AT LAP SITES. 1420 PATIENT PAIN HAS IMPROVED TO A 4/10. PATIENT IS ALERT AND ORIENTED. BREATHING EQUAL AND UNLABORED. OXYGEN SATURATIONS ABOVE 95% ON ROOM AIR. VITAL SIGNS COMPLETE. 1430 PATIENT HAS MET DISCHRAGE CRITERIA. PATIENT ABLE TO DRESS SELF AND TOLERATE IT WELL. PATIENT GIVEN DISCHARGE INSTRUCTIONS AND UNDERSTOOD. NO QUESTIONS AT THIS TIME. IV D/C'D WNL. PATIENT WAS WHEELED OUT OF FACILITY TO PRIVATE AUTO WITH .
--- NOTE | 2022-03-09 13:13 | OR ---
[facility] [address] [place], [place] [address] Signed DATE OF OPERATION: 03/08/2022 SURGEON: Delvis Iraheta MD PREOPERATIVE DIAGNOSES: 1. Recurrent gallstone pancreatitis. 2. Recent delivery of healthy child by 2 weeks ago. POSTOPERATIVE DIAGNOSES: 1. Recurrent gallstone pancreatitis. 2. Recent delivery of healthy child by 2 weeks ago. PROCEDURES: 1. Laparoscopic cholecystectomy with intraoperative cholangiogram. 2. Surgeon-directed fluoroscopy. ANESTHESIA: General endotracheal, Irene Kely, HUMAN RESOURCE INTERN and local 20 mL of 0.25% Marcaine with epinephrine. INDICATION: This 31-year-old white woman, who is a patient of Dr. Ronald Deleon as well as Dr. Adela Thomas. She is from [facility]. She is known to me from several years ago, where she was evaluated for biliary colic and consideration for cholecystectomy was made, but the patient preferred not to do so. I was consulted on January 01, 2022, where she was 30 weeks of gestation with an estimated date of confinement of March 10 with findings consistent with pancreatitis. Gallbladder ultrasound confirms stones. She was managed with IV antibiotics and had resolution of her symptoms reasonably promptly. She has had episodic right upper abdominal pain, however. Two weeks ago, she underwent for delivery of her child after a trial of labor. She has been getting along well since that time. She is now admitted to undergo cholecystectomy preferred by laparoscopic approach understanding risks of bleeding, infection, bile duct injury, need for open procedure and need for other indicated procedures. FINDINGS: The gallbladder was chronically inflamed. Once excised, she was found to have multiple small yellow gallstones. Intraoperative cholangiogram was normal. The liver was Electronically Signed By: DELVIS IRAHETA MD 03/09/22 1313 PATIENT NAME: NIKHIL LEE OPERATIVE REPORT DATE OF : 90 REPORT #: [id number] PHYSICIAN: DELVIS IRAHETA MD PCP: IZAIAH LYNN PAC REPORT IS CONFIDENTIAL AND NOT TO BE RELEASED WITHOUT AUTHORIZATION [facility] [address] [place], [place] [address] Signed normal. There were no other findings of concern. DESCRIPTION OF PROCEDURE: The patient was brought to the operating room, given a general endotracheal anesthetic. Preoperative antibiotic Ancef was given and sequential compression device stockings used. A low scar was healing well. The abdomen was prepared with a chlorhexidine solution and draped sterilely. An infraumbilical incision was made and using an open Brian cannula technique, pneumoperitoneum was achieved to a level of 14 mmHg of carbon dioxide gas. Intra-abdominal inspection showed no sign of ascites or carcinomatosis. The liver was normal in appearance. Three additional trocars were placed in the usual configuration in the subxiphoid, right midclavicular, and right anterior axillary line. The gallbladder revealed upon lifting the edge of the liver and grasped and elevated cephalad. Using blunt electrocautery dissection, the adhesions to the duodenum were taken down allowing for grasping of the infundibulum. Using blunt electrocautery dissection, the triangle of Calot was dissected free. The cystic arterial branch was easily identified and doubly clipped and divided. Ultimately, the cystic duct was well identified. A clip was applied across the gallbladder cystic duct junction. Transsection of a portion of the cystic duct showed it to be gummy and chronically inflamed. Additional maneuvers were undertaken ultimately allowing for placement of a cholangiocatheter. Intraoperative cholangiography was then undertaken showing free flow of contrast in the duodenum with no evidence of biliary ductal dilatation or foreign body. The catheter was removed. The cystic duct was triply clipped and divided. The gallbladder was dissected free in a retrograde fashion without problem. The gallbladder was extracted through the infraumbilical port site without problem, opened on the back table and found to have chronic inflammatory change of the mucosa and multiple small yellow gallstones. There was no sign of neoplasm. Irrigation was undertaken in the subhepatic space. There was no sign of bile leak, bleeding, or other problems. The trocars removed under direct visualization showing no sign of bleeding. The infraumbilical fascial incision was reapproximated with interrupted 0 Vicryl suture. The skin was closed with interrupted 3-0 Vicryl suture after application of 20 mL of 0.25% Marcaine with epinephrine to the trocar sites. Steri-Strips were applied. The patient was ultimately extubated and transferred to the recovery room in good condition having suffered no complications. Sponge, needle, and instrument counts reported as correct x3. Delvis Iraheta MD Electronically Signed By: DELVIS IRAHETA MD 03/09/22 1313 PATIENT NAME: NIKHIL LEE OPERATIVE REPORT DATE OF : 90 REPORT #: [id number] PHYSICIAN: DELVIS IRAHETA MD PCP: IZAIAH LYNN PAC REPORT IS CONFIDENTIAL AND NOT TO BE RELEASED WITHOUT AUTHORIZATION [address], [place] [address] Signed /[facility] /[id number] cc: Ronald Thomas MD Copies: ADELA THOMAS MD ~ Electronically Signed By: DELVIS IRAHETA MD 03/09/22 1313 PATIENT NAME: ROSANIKHIL OPERATIVE REPORT DATE OF : [birth year] REPORT #: [id number] PHYSICIAN: DELVIS IRAHETA MD PCP: IZAIAH LYNN PAC REPORT IS CONFIDENTIAL AND NOT TO BE RELEASED WITHOUT AUTHORIZATION
--- NOTE | 2022-03-09 16:47 | NUR ---
1618- PT CALLED SHE IS CONCERNED THAT SHE IS HAVING ABD PAIN EVEN AFTER TAKING HER PAIN MEDICATIONS. PT STATES THE PAIN IS MOSTLY IN HER UMBILICUS INCISION AND HER C- SECTION SITE. PT REPORTS IT HURTS TO "PASS GAS" OR EVEN TO TRY TO GO "NUMBER 2". PT STATES SHE IS TAKING GAS RELIEF PILLS AND STOOL SOFTENERS. PT ALSO REPORTS SHE IS HAVING SOME NAUSEA THAT SHE IS TAKING ZOFRAN FOR. 1623- DR. IRAHETA CALLED AND NEW ORDERS RECEIVED. DR. IRAHETA WANTS PT TO TAKE 600 MG OF IBUPROFEN EVERY 6 HOURS AND TYLENOL 1000 MG EVERY 6 HOURS. STATES PT CAN ICE HER ABD WELL IF SHE WANTS TO. 1628- PT CALLED AND EDUCATED ABOUT THE NEW ORDERS FOR PAIN MANAGEMENT. ALSO DISCUSSED WITH PT ABOUT SPLINTING WITH MOVEMENT, COUGHING, AND DEEP BREATHING. PT STATES UNDERSTANDING. PT REPORTS HER STERI STRIPS HAVE COME OFF HER UMBILICUS SITE AND SHE COVERED IT WITH A BANDAGE. 1644- DR. IRAHETA CONTACTED ABOUT STERI STRIPS COMING OFF. DR. IRAHETA STATES PT IS OKAY TO COVER THE SITE WITH A BANDAGE. 1645- PT CALLED BACK ABOUT THE UMBILICUS SITE. PT ASKED ABOUT SHOWERING. PT UPDATED THAT SHE IS ALLOWED TO SHOWER, NOT TO SOAK IN WATER BUT ALLOW THE WATER TO RUN DOWN AND PAT DRY THE INCISIONS.
== END 2022-03-08 14:30 | disposition home or self-care (01) ==
LOC: DS 07:20
PROVIDERS: ATTEND Surgery
PROC: BF13YZZ Fluoroscopy of Gallbladder and Bile Ducts using Other Contrast (ICD-10-PCS; 2022-03-08)
PROC: 0FT44ZZ Resection of Gallbladder, Percutaneous Endoscopic Approach (ICD-10-PCS; principal; 2022-03-08 09:15)
DX: O99.63 Diseases of the digestive system complicating the puerperium (principal); K85.10 Biliary acute pancreatitis without necrosis or infection; K80.10 Calculus of gallbladder with chronic cholecystitis without obstruction
CPT/HCPCS: 36415; 74300; 80053; 84703; 85025; 88304; J0131; J0690; J1100; J1644; J1885; J2001; J2060; J2250; J2405; J2704; J3010; J7121; Q9967

== ENCOUNTER 2022-03-12 14:41 | Emergency (ER) | payer OTHER ==
[~2022-03-12] VITALS: Ht 165.1 cm; Wt 65.3 kg
[~2022-03-12 14:41] MED LIST changes: +PERCOCET 7.5-31 EACH PO; +PRENA1 TRUE CO1 EACH PO
--- OUTSIDE RECORDS SUMMARY | 2022-03-12 14:42 | XMS ---
PreManage Notification: NIKHIL LEE [employer] Events No recent Security Events currently on file CRITERIA MET - [facility] CHARLENE BOONE Family Medicine Current PHONE: Unknown Anna Jett-Tea Nurse Practitioner: Family Current PHONE: [phone] CESAR DOBSON [facility] Current PHONE: [phone] Yaneli has no Care Guidelines for this patient. EShelly VISIT COUNT (12 MO.) [address] [place] [id number] LEXIE Cisneros TOTAL 3 NOTE: Visits indicate total known visits. ED/UCC VISIT TRACKING (12 MO.) 03/12/2022 14:41 [facility] [place] TYPE: Emergency COMPLAINT: - POST OP PROBLEM 01/21/2022 19:53 [facility] [place] TYPE: Emergency COMPLAINT: - GALLBLADDER @ 8 MONTHS DIAGNOSES: - Other specified related conditions, third trimester - 33 weeks gestation of 09/25/2021 23:37 [facility] [place] TYPE: Emergency COMPLAINT: - VOMITING, PAIN AROUND RIBS DIAGNOSES: - Left lower quadrant pain - Left upper quadrant pain - Other low back pain - 16 weeks gestation of - Other specified related conditions, second trimester - Nausea with vomiting, unspecified - Right lower quadrant pain INPATIENT VISIT TRACKING (12 MO.) 02/20/2022 00:00 [facility] [place] TYPE: [facility] COMPLAINT: - INDUCTION/LAP SIDNEY DIAGNOSES: - 37 weeks gestation of - 37 weeks gestation of - Single live - Contact with and (suspected) exposure to COVID-19 - Abnormality in heart rate and rhythm complicating labor and delivery - Contact with and (suspected) exposure to COVID-19 - Obstructed labor due to incomplete rotation of head, not applicable or unspecified - Abnormality in heart rate and rhythm complicating labor and delivery - Personal history of other diseases of the digestive system - Personal history of other diseases of the digestive system - Single live 01/17/2022 16:14 [facility] [place] TYPE: Observation COMPLAINT: - NAUSEA/VOMITING DIAGNOSES: - Low back pain, unspecified - 32 weeks gestation of - Other specified diseases and conditions complicating - Hypokalemia - Endocrine, nutritional and metabolic diseases complicating , third trimester - Dehydration - Nausea - Nausea with vomiting, unspecified 01/01/2022 16:20 [facility] [place] TYPE: Observation COMPLAINT: - CHOLECYSTITIS DIAGNOSES: - Gastro-esophageal reflux disease without esophagitis - Other specified diseases of the digestive system - Biliary acute pancreatitis without necrosis or infection - 30 weeks gestation of - Diseases of the digestive system complicating , third trimester [email or web address]
[2022-03-12] MEDS ORDERED: CEPHALEXIN500 M1 PO (17:11)
== END 2022-03-12 17:25 | disposition home or self-care (01) ==
LOC: ED 14:41
DX: O91.22 Nonpurulent mastitis associated with the puerperium (principal)
CPT/HCPCS: 36415; 71045; 80053; 81001; 83605; 85025; 87040; 87502; 99283-25; A9270; C9803; U0003